=== PATIENT | female | born 1955 ===

== ENCOUNTER 2025-02-23 20:21 | Inpatient (IN) | payer MEDICARE, OTHER ==
[~2025-02-23] VITALS: Ht 165.1 cm; Wt 61.4 kg
[2025-02-23 23:30] VITALS: BP 108/94
[2025-02-23] MEDS ORDERED: ASPI81CH PO (23:43)
[2025-02-23 23:45] VITALS: BP 109/62
[2025-02-23] MEDS ORDERED: Ondansetron HCl 2 MG / ML 2ML Vial IV PRN (23:50)
[2025-02-23] MEDS ORDERED: FLU VACC TS2025(65UP)/MF59C/PF 45 MCG/0.5 ML SYRINGE IM SCH (23:50)
[2025-02-23] MEDS ORDERED: FLUT1DIS5 INH (23:56)
[2025-02-23] MEDS ORDERED: CEPH500 PO (23:56)
[2025-02-23] MEDS ORDERED: GABA100 PO (23:57)
[2025-02-24] VITALS (24 sets, daily range): BP systolic 88–131; BP diastolic 51–80
[2025-02-24] MEDS ORDERED: MULVITA PO (00:19)
[2025-02-24] MEDS ORDERED: LEVE500 PO (00:19)
[2025-02-24] MEDS ORDERED: POTA10T PO (00:20)
[2025-02-24] MEDS ORDERED: PSEU120ER PO (00:20)
[2025-02-24 00:35] LABS: pH Blood Venous 7.19 (7.34-7.37)
[2025-02-24 00:37] LABS: BASOPHILS ABSOLUTE AUTO 0.02 K/mm3 (0.00-0.23); BASOPHILS PERCENT AUTO 0 % (0-2); EOSINOPHILS ABSOLUTE AUTO 0.00 K/mm3 (0.00-0.68); EOSINOPHILS PERCENT AUTO 0 % (0-6); Hematocrit 54.5 % (33.0-51.0); Hemoglobin 17.3 g/dL (11.5-16.0); IMMATURE GRAN ABSOLUTE AUTO 0.05 K/mm3 (0.00-0.10); IMMATURE GRAN PERCENT AUTO 1 % (0-1); LYMPHOCYTES ABSOLUTE AUTO 0.48 K/mm3 (0.84-5.20); LYMPHOCYTES PERCENT AUTO 5 % (21-46); MONOCYTES ABSOLUTE AUTO 0.58 K/mm3 (0.16-1.47); MONOCYTES PERCENT AUTO 6 % (4-13); Mean Corpuscular HGB Conc 31.7 g/dL (31.5-36.5); Mean Corpuscular Volume 104 fL (80-100); NEUTROPHILS ABSOLUTE AUTO 8.57 K/mm3 (1.96-9.15); NEUTROPHILS PERCENT AUTO 88 % (41-73); NRBC ABSOLUTE 0.07 K/mm3 (0.00-0.02); NRBC Auto 0.7 /100 WBC (0.0-0.2); Platelet Count 119 K/mm3 (150-400); RDW Coefficient Variation 20.4 % (11.7-14.2); RDW Standard Deviation 77.0 fL (35.1-46.3)
--- NOTE | 2025-02-24 00:42 | NUR ---
UPDATE RT CALLED WITH CRITICAL LAB: PH [phone]. CALL PLACED TO MD CLINTON. MD CLINTON WITH ORDERS FOR BIPAP AND TO RECHECK VBG AT 0230. RT CURRENTLY IN ROOM SETTING UP AND INITIATING BIPAP.
[2025-02-24 00:51] LABS: Prothrombin Time Results 14.8 Sec (9.7-11.5)
[2025-02-24 01:22] LABS: U Amphetamine Screen Not Detected; U Barbiturate Screen Not Detected; U Benzodiazapine Screen Not Detected; U Buprenorphine Screen Not Detected; U Cannabinoids Screen Not Detected; U Cocaine Screen Not Detected; U Methadone Screen Not Detected; U Methamphetamine Screen Not Detected; U Opiates Screen Not Detected; U Oxycodone Screen Not Detected; U Phencyclidine Screen Not Detected
[2025-02-24 02:08] LABS: Magnesium, Blood 2.3 mg/dL (1.6-2.4)
[2025-02-24 02:13] LABS: Alanine Aminotransfer (ALT/SGP 1002.0 U/L (12-78); Albumin, Blood 3.2 g/dL (3.4-5.0); Albumin/Globulin Ratio 0.9 (0.8-1.8); Anion Gap 9.0 mmol/L (3-11); Aspartate Aminotrans (AST/SGOT 1164.0 U/L (12-37); Bilirubin, Total 0.4 mg/dL (0.1-1.0); Blood Urea Nitrogen 35.0 mg/dL (8-24); CO2, Blood 28.0 mmol/L (21-32); Calcium, Blood 8.4 mg/dL (8.5-10.1); Chloride, Blood 108.0 mmol/L (98-108); Creatinine, Blood 1.51 mg/dL (0.40-1.00); Globulin, Blood 3.7 g/dL (2.2-4.0); Glucose, Blood 88.0 mg/dL (70-99); Potassium, Blood 5.5 mmol/L (3.5-5.5); Sodium, Blood 139.0 mmol/L (136-145); Total Protein, Blood 6.9 g/dL (6.4-8.2)
[2025-02-24 02:57] LABS: pH Blood Venous 7.30 (7.34-7.37)
[2025-02-24 04:10] LABS: pH Blood Venous 7.37 (7.34-7.37)
[2025-02-24] MEDS ORDERED: Albuterol 2.5 MG/3 ML VIAL INH PRN (04:10)
[2025-02-24 04:27] LABS: BASOPHILS ABSOLUTE AUTO 0.02 K/mm3 (0.00-0.23); BASOPHILS PERCENT AUTO 0 % (0-2); EOSINOPHILS ABSOLUTE AUTO 0.00 K/mm3 (0.00-0.68); EOSINOPHILS PERCENT AUTO 0 % (0-6); Hematocrit 50.6 % (33.0-51.0); Hemoglobin 16.2 g/dL (11.5-16.0); IMMATURE GRAN ABSOLUTE AUTO 0.07 K/mm3 (0.00-0.10); IMMATURE GRAN PERCENT AUTO 1 % (0-1); LYMPHOCYTES ABSOLUTE AUTO 0.57 K/mm3 (0.84-5.20); LYMPHOCYTES PERCENT AUTO 6 % (21-46); MONOCYTES ABSOLUTE AUTO 0.53 K/mm3 (0.16-1.47); MONOCYTES PERCENT AUTO 6 % (4-13); Mean Corpuscular HGB Conc 32.0 g/dL (31.5-36.5); Mean Corpuscular Volume 102 fL (80-100); NEUTROPHILS ABSOLUTE AUTO 8.38 K/mm3 (1.96-9.15); NEUTROPHILS PERCENT AUTO 88 % (41-73); NRBC ABSOLUTE 0.09 K/mm3 (0.00-0.02); NRBC Auto 0.9 /100 WBC (0.0-0.2); Platelet Count 114 K/mm3 (150-400); RDW Coefficient Variation 19.9 % (11.7-14.2); RDW Standard Deviation 75.5 fL (35.1-46.3)
[2025-02-24 05:07] LABS: Source, Urine Straight Cath
[2025-02-24 05:30] LABS: Bilirubin, Urine Neg (Neg); Color, Urine Yellow (P-Yellow); Glucose Qualitative, Urine Neg (Neg); Ketones, Urine Neg (Neg); Leukocyte Esterase, Urine Neg (Neg); Protein, Urine 2+ (Neg); Specific Gravity, Urine 1.015 (1.003-1.022); Urobilinogen, Urine NORM (Normal)
[2025-02-24 05:42] LABS: Magnesium, Blood 2.0 mg/dL (1.6-2.4); Thyroid Stimulating Hormone 0.766 uIU/mL (0.360-4.800)
[2025-02-24 05:47] LABS: White Blood Cells, Urine 0-2 /hpf (0-5)
[2025-02-24] MEDS ORDERED: NS 250 ML IV SCH (06:00)
[2025-02-24 06:04] LABS: Alanine Aminotransfer (ALT/SGP 801.0 U/L (12-78); Albumin, Blood 2.6 g/dL (3.4-5.0); Albumin/Globulin Ratio 0.9 (0.8-1.8); Anion Gap 5.0 mmol/L (3-11); Aspartate Aminotrans (AST/SGOT 841.0 U/L (12-37); Bilirubin, Total 0.3 mg/dL (0.1-1.0); Blood Urea Nitrogen 37.0 mg/dL (8-24); CO2, Blood 31.0 mmol/L (21-32); Calcium, Blood 8.0 mg/dL (8.5-10.1); Chloride, Blood 110.0 mmol/L (98-108); Creatinine, Blood 1.32 mg/dL (0.40-1.00); Globulin, Blood 2.9 g/dL (2.2-4.0); Glucose, Blood 86.0 mg/dL (70-99); Potassium, Blood 5.3 mmol/L (3.5-5.5); Sodium, Blood 141.0 mmol/L (136-145); Total Protein, Blood 5.5 g/dL (6.4-8.2)
[2025-02-24] MEDS ORDERED: Enoxaparin 40 MG/0.4 ML SYR SC SCH (09:00)
--- NOTE | 2025-02-24 10:50 | NUR ---
ASSUMPTION OF CARE ASSUMED CARE OF PATIENT AT 0700 AFTER BEDSIDE SHIFT REPORT. PATIENT SLEEPING, AROUSABLE TO NAME, ABLE TO ANSWER SOME BASIC YES/NO QUESTIONS A0 X 2. PATIENT ON BIPAP, SETTINGS PER RT. HR STABLE IN 90'S. SBP 100-110 AND STABLE. O2 SATS >95% ON BIPAP. TANG CATHETER IN PLACE AND DRAINING TO GRAVITY. BILATERAL LOWER EXTREMITY EDEMA NOTED. PROVIDER AWARE. NO OBVIOUS SIGNS OF CHEST PAIN/PRESSURE. BEDREST AT THE MOMENT. PATIENT RESTING COMFORTABLY IN BED IN LOWEST POSITION WITH CALL LIGHT IN REACH.
[2025-02-24] MEDS ORDERED: NS 1,000 ML IV SCH (10:55)
[2025-02-24] MEDS ORDERED: Miconazole Nitrate 2% 85 GM PWD TOP PRN (11:20)
[2025-02-25] VITALS (10 sets, daily range): BP systolic 112–125; BP diastolic 60–87
[2025-02-25 05:09] LABS: Hematocrit 54.7 % (33.0-51.0); Hemoglobin 17.4 g/dL (11.5-16.0); Mean Corpuscular HGB Conc 31.8 g/dL (31.5-36.5); NRBC ABSOLUTE 0.04 K/mm3 (0.00-0.02); NRBC Auto 0.3 /100 WBC (0.0-0.2); RDW Coefficient Variation 20.3 % (11.7-14.2); RDW Standard Deviation 79.7 fL (35.1-46.3)
[2025-02-25 05:10] LABS: Mean Corpuscular Volume 108 fL (80-100); Platelet Count 116 K/mm3 (150-400)
[2025-02-25 05:40] LABS: Albumin, Blood 2.7 g/dL (3.4-5.0); Anion Gap 10 mmol/L (3-11); Blood Urea Nitrogen 30 mg/dL (8-24); CO2, Blood 31 mmol/L (21-32); Calcium, Blood 8.2 mg/dL (8.5-10.1); Chloride, Blood 112 mmol/L (98-108); Creatinine, Blood 0.57 mg/dL (0.40-1.00); Glucose, Blood 76 mg/dL (70-99); Magnesium, Blood 2.6 mg/dL (1.6-2.4); Phosphorus, Blood 2.5 mg/dL (2.5-4.9); Potassium, Blood 5.0 mmol/L (3.5-5.5); Sodium, Blood 148 mmol/L (136-145)
--- NOTE | 2025-02-25 07:59 | NUR ---
SHIFT SUMMARY: PT IS LETHARGIC, A&O TO SELF AND PLACE. VSS ON 2L OXYGEN VIA NC. SR 80'S-90'S. AROUND 2100, PT ADAMANT ABOUT NOT WEARING HER BIPAP. RR 34, DESATTING INTO THE HIGH 80'S. TURNED HER OXYGEN UP TO 4L VIA NC. AROUND 0100, PT APPEARED TO BE STRUGGLING WITH HER BREATHING AND WAS THEN AGREEABLE TO WEAR HER BIPAP, SHE CONTINUED WEARING HER BIPAP THE REST OF THIS SHIFT. PT DOES SEEM TO BE IN PAIN WITH REPOSITIONING, HOLLERS OUT, "OUCH, OUCH, OUCH!" REPOSITIONING Q2 TOLERATED. PT REMAINS NPO. TANG CATHETER PATENT, DRAINING TO GRAVITY, STAT LOCK IN PLACE. VOIDING ADEQUATE AMOUNTS OF YELLOW URINE. NO BM THIS SHIFT. BED IN LOWEST POSITION, CALL LIGHT WITHIN REACH. BED ALARM SET FOR PT'S SAFETY.
[2025-02-25] MEDS ORDERED: Formoterol/Mometasone MDI 5/200 mcg 13 GM INH SCH (15:55)
--- NOTE | 2025-02-25 18:14 | NUR ---
SHIFT SUMMARY PATIENT IS AO X 1-2. VITALS SIGNS WITH IN NORMAL LIMITS. O2 SATS >88% ON 2-4L NC. BIPAP WHILE SLEEPING. MAP >65. HR 80-95. TANG CATHETER IN PLACE DRAINING TO GRAVITY. DIET ORDER CHANGED PER PROVIDER, TOLERATING ORAL NUTRITION WELL. HAS BEEN AT BEDSIDE DURING SHIFT, UPDATED ON PATIENT CONDITION. NYSTATIN APPLIED TO REDENNED AREA ON COCCYX. PATIENT RESTING ON BIPAP IN BED IN LOWEST POSITION, CALL LIGHT WITH IN REACH.
--- NOTE | 2025-02-25 21:28 | NUR ---
ASSUMPTION OF CARE ASSUMED CARE OF PT AT APPROXIMATELY 1900. PT LETHARGIC. VSS. PILLS CRUSHED IN APPLESAUCE. PT REPOSITIONED WITH PILLOW SUPPORT UNDER RIGHT SIDE. BED IN LOWEST POSITION. BIPAP ON WHILE SLEEPING. HEELS ELEVATED WITH PILLOWS. TANG CATHETER IN PLACE DRAINING TO GRAVITY.
[2025-02-26 03:41] VITALS: BP 130/75
[2025-02-26 05:06] LABS: Hematocrit 49.6 % (33.0-51.0); Hemoglobin 15.3 g/dL (11.5-16.0); Mean Corpuscular HGB Conc 30.8 g/dL (31.5-36.5); Mean Corpuscular Volume 107 fL (80-100); NRBC ABSOLUTE 0.00 K/mm3 (0.00-0.02); NRBC Auto 0.0 /100 WBC (0.0-0.2); Platelet Count 96 K/mm3 (150-400); RDW Coefficient Variation 19.6 % (11.7-14.2); RDW Standard Deviation 77.9 fL (35.1-46.3)
--- NOTE | 2025-02-26 05:12 | NUR ---
SHIFT SUMMARY PT CONTINUES TO BE LETHARGIC THIS SHIFT. COMPLIANT WITH BIPAP FOR MOST OF SHIFT. PT TOOK A BREAK FOR A FEW HOURS AND AGREED TO RESUME WITH BIPAP. 3L O2 VIA NC WHEN NOT ON BIPAP. VSS. PT ORIENTED TO SELF. 1:1 FEEDER. PILLS CRUSH WITH APPLESAUCE. PAIN MANAGED WITH MEDICATION PER EMAR. CONTINUE NS AT 50ML/HR. PICTURE OF COCCYX WOUND IN CHART. HEELS FLOATED WITH PILLOWS. PT REPOSITIONED Q2H. TANG IN PLACE AND DRAINING TO GRAVITY. NO C/O CHEST PAIN/PRESSURE THIS SHIFT. NO C/O SOB THIS SHIFT.
[2025-02-26 05:33] LABS: Alanine Aminotransfer (ALT/SGP 515.0 U/L (12-78); Albumin, Blood 2.4 g/dL (3.4-5.0); Albumin/Globulin Ratio 0.9 (0.8-1.8); Anion Gap 4.0 mmol/L (3-11); Aspartate Aminotrans (AST/SGOT 239.0 U/L (12-37); Bilirubin, Total 0.4 mg/dL (0.1-1.0); Blood Urea Nitrogen 19.0 mg/dL (8-24); CO2, Blood 34.0 mmol/L (21-32); Calcium, Blood 8.0 mg/dL (8.5-10.1); Chloride, Blood 114.0 mmol/L (98-108); Creatinine, Blood 0.37 mg/dL (0.40-1.00); Globulin, Blood 2.7 g/dL (2.2-4.0); Glucose, Blood 102.0 mg/dL (70-99); Magnesium, Blood 2.5 mg/dL (1.6-2.4); Potassium, Blood 4.2 mmol/L (3.5-5.5); Sodium, Blood 148.0 mmol/L (136-145); Total Protein, Blood 5.1 g/dL (6.4-8.2)
[2025-02-26 07:51] VITALS: BP 108/58
[2025-02-26] MEDS ORDERED: OXYC5 PO (10:26)
[2025-02-26] MEDS ORDERED: Polyethylene Glycol 3350 17 gm PO PRN (10:50)
[2025-02-26 12:14] LABS: HEPATITIS A ANTIBODY, IGM Negative (Negative); HEPATITIS C AB CIA INTERP Negative (Negative); HEPATITIS C ANTIBODY CIA INDEX <0.02 IV
[2025-02-26 12:32] VITALS: BP 118/63
--- NOTE | 2025-02-26 13:09 | NUR ---
PT UPDATE; THIS RN HAD A DIFFICULT TIME WAKING PT UP FOR LUNCH. PT WOULD RESPOND TO PAIN AND BARELY KEEPING EYES OPEN AND IS FALLING BACK TO SLEEP. VITALS HR 90'S SR, SBP 118, SATS ABOVE 90% ON 3L OF O2, TEMP 99.6. PT WAS TRACY TO EAT BREAKFAST THIS MORNING ABLE TO RESPOND TO SOME QUESTIONS. PT THEN STARTED C/O PAIN ALL OVER PT WAS ASKING FOR PAIN MEDS AND REPORTED THAT SHE WAS TAKING OXYCODONE. PT REPORTED SHE PICKS UP HER PRESCRIPTIONS FROM [facility]. 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 DR GAONA MADE AWARE WAS GIVEN UPDATE REGARDING PT STATUS CHEST XRAY1V ORDERED AND VBG. AWAITING FOR RESULTS AT THIS TIME. PT REMAINED ASLEEP IN BED. WILL CONTINUE TO MONITOR
[2025-02-26 13:30] LABS: pH Blood Venous 7.29 (7.34-7.37)
[2025-02-26 15:19] VITALS: BP 105/65
[2025-02-26 17:20] LABS: pH Blood Venous 7.30 (7.34-7.37)
--- NOTE | 2025-02-26 17:27 | NUR ---
PT SUMMARY; SEE PREVIOUS NOTES; PT WAS ON BIPAP SINCE LUNCH TIME PT STARTED TO WAKE UP AND STARTED PULLING OFF BIPAP MASK, SWITCHED BACK TO NASAL CANNULA. ABLE TO RESPOND TO QUESTIONS AGAIN VERY POOR HISTORIAN. VITALS HAS BEEN STABLE. PT WAS TRANSITION BACK TO PCU STATUS. REPEAT VBG AFTER 3 HRS IN BIPAP DIDNT IMPROVE MUCH. PT WAS PLACED BACK ON BIPAP MASK. TANG DRAINING YELLOW URINE VIA GRAVITY. NS AT 50MLS PER HR. ORDERED ONE TIME DOSE OF IV KEPPRA WHEN PT WAS ON BIPAP. PT RESTING IN BED. COCCYX DRESSINGS CHANGED PT HAS BEEN REPOSITIONED Q2 HRS. ORAL CARE PROVIDED. WILL REPORT TO ONCOMING SHIFT
[2025-02-26 20:11] VITALS: BP 124/77
[2025-02-26] MEDS ORDERED: Docusate Sodium/Senna 1 Tab PO SCH (21:00)
--- NOTE | 2025-02-26 21:43 | NUR ---
ASSUMPTION OF CARE ASSUMED CARE OF PT AT APPROXIMATELY 1900. PT RESTING COMFORTABLY IN BED ON 3L O2 VIA NC. PT SWITCHED TO BIPAP AFTER MEDICATIONS GIVEN PER EMAR. NS RUNNING AT 50ML/HR. PT REPOSITIONED IN BED. NO C/O CHEST PAIN/PRESSURE AT THIS TIME. NO C/O SOB. PT AOX2. CONTINUES TO BE LETHARGIC. VSS. CALL LIGHT WITHIN REACH.
[2025-02-26 23:17] VITALS: BP 120/66
[2025-02-27 03:27] VITALS: BP 119/75
[2025-02-27 04:13] LABS: Hematocrit 50.6 % (33.0-51.0); Hemoglobin 15.7 g/dL (11.5-16.0); Mean Corpuscular HGB Conc 31.0 g/dL (31.5-36.5); Mean Corpuscular Volume 107 fL (80-100); NRBC ABSOLUTE 0.00 K/mm3 (0.00-0.02); NRBC Auto 0.0 /100 WBC (0.0-0.2); Platelet Count 83 K/mm3 (150-400); RDW Coefficient Variation 19.0 % (11.7-14.2); RDW Standard Deviation 76.1 fL (35.1-46.3)
[2025-02-27 04:52] LABS: Albumin, Blood 2.3 g/dL (3.4-5.0); Anion Gap 4 mmol/L (3-11); Blood Urea Nitrogen 16 mg/dL (8-24); CO2, Blood 35 mmol/L (21-32); Calcium, Blood 8.1 mg/dL (8.5-10.1); Chloride, Blood 113 mmol/L (98-108); Creatinine, Blood 0.34 mg/dL (0.40-1.00); Glucose, Blood 129 mg/dL (70-99); Magnesium, Blood 2.3 mg/dL (1.6-2.4); Phosphorus, Blood 1.4 mg/dL (2.5-4.9); Potassium, Blood 3.8 mmol/L (3.5-5.5); Sodium, Blood 148 mmol/L (136-145)
--- NOTE | 2025-02-27 06:12 | NUR ---
SHIFT SUMMARY PT LETHARGIC THIS SHIFT. PT COMPLIANT WITH BIPAP MOST OF THE SHIFT. PT TAKEN OFF BIPAP FOR CARES/REPOSITIONING AT APPROXIMATELY 0500. PT DECLINED HAVING BIPAP PUT BACK ON STATING SHE WANTED TO TAKE A BREAK. PT ON 3L O2 VIA NC. PT HAD MEDIUM BM THIS SHIFT. TANG IN PLACE DRAINING CLEAR YELLOW URINE. REPEAT BLOOD/URINE CULTURES DONE, SEE RESULTS. PT AOX2-3. CBG AT 0000 WAS 78. PT GIVEN APPLE JUICE AND PT REQUESTED AN EXTRA APPLE JUICE AND APPLE SAUCE. PT HAD 18 BEAT RUN OF SVT WHILE REPOSITIONING FOR CARES. NO C/O CP/PRESSURE. NO C/O SOB. PT HAS A VERY COARSE WET COUGH BUT IS UNABLE TO COUGH ANYTHING OUT AT THIS TIME. VSS. CALL LIGHT WITHIN REACH. PT ABLE TO MAKE SOME NEEDS KNOWN.
[2025-02-27 07:28] VITALS: BP 102/70; BP 91/46
[2025-02-27] MEDS ORDERED: Sodium Phosphate Mono/Dibasic 250 MG Tab PO SCH (08:00)
[2025-02-27] MEDS ORDERED: Cholecalciferol 1000 Unit Tablet (=25MCG) PO SCH (09:00)
[2025-02-27] MEDS ORDERED: Multivitamins 1 Tab PO SCH (09:00)
[2025-02-27 10:57] LABS: pH Blood Venous 7.27 (7.34-7.37)
[2025-02-27 11:10] VITALS: BP 127/68
[2025-02-27] MEDS ORDERED: Ipratropium/Albuterol SulF 2.5-0.5MG/3 ML Amp INH SCH (11:25)
--- NOTE | 2025-02-27 12:03 | NUR ---
PT UPDATE AM; PT HAD BREAKFAST THIS MORNING WAS ALERT ADN TALKING STILL A LITTLE BIT DROWSY/LETHARGIC, ABLE TO TAKE MEDS NO ISSUES. VITALS HRR SR 80'S WAS HAVING RUNS OF SVT FOR 9-10 SECONDS MD MADE AWARE PT WAS GIVEN ONE TIME DOSE OF 12.5MG PO METOPROLOL. SBP 110'S, SATS ABOVE 90% ON 4L OF O2, AFEBRILE. BEFORE LUNCH TIME PT WAS VERY LETHRAGIC AGAIN UNABLE TO KEEP EYES OPEN OR STAY AWAKE ABLE TO RESPOND TO QUESTIONS WITH SHORT RESPONSES. PT HAS BEEN REFUSING SINCE THIS MORNING TO BE PLACED BACK ON BIPAP MASK EVEN AFTER EDUCATING. MD MADE AWARE WELL PALLIATIVE CARE RN WAS GIVEN UPDATE. REPEAT VBG WAS DONE PH CAME BACKL CRITICAL AT 7.27. PT WAS PLACED BACK ON THE MASK PT STARTED DESATTING TO 88% ON NASAL CANNULA 4L AND BARELY RESPONDING. PT WAS REPOSITIONED IN BED, TANG CARE AND ORAL CARE DONE. NS RUNNING AT 50MLS/HR WILL CONTINUE TO MONITOR
[2025-02-27 15:28] VITALS: BP 100/62
--- NOTE | 2025-02-27 18:52 | NUR ---
PT SUMMARY; SEE PREVIOUS NOTE; PT REMAINS ON BIPAP TIL THE END OF THE SHIFT. DINNER WAS HELD. VITALS REMAINED STABLE. TANG DRAINING VIA GRAVITY. PT WAS STARTED ON IV STEROIDS AND BREATHING TX. PT REMAINS LETHARGIC ABLE TO RESPOND TO STIMULI ON BIPAP NODS AND OPENS EYES BUT THEN FALLS BACK TO SLEEP. PT HAD 2 LOOSE BM FOR THE SHIFT. PT STARTED ON LACTULOSE. COCCYX DRESSING CHANGED TWICE. REPOSITIONED FOR COMFORT. WILL REPORT TO ONCOMING SHIFT
[2025-02-27 19:32] VITALS: BP 100/67
--- NOTE | 2025-02-27 22:26 | NUR ---
ASSUMPTION OF CARE ASSUMED CARE OF PT AT APPROXIMATELY 1900. PT RESTING IN BED WITH BIPAP IN PLACE. REPOSITIONED PT AND REMOVED BIPAP TO ADMINISTER MEDICATION PER EMAR. PT REFUSING TO REPLACE BIPAP AT THIS TIME DESPITE EDUCATION. PT WITH 3L O2 VIA NC. TEMP SLIGHTLY ELEVATED ACCORDING TO PROBE AT 99.3. TYLENOL NOT GIVEN AT THIS TIME. WILL CONTINUE TO MONITOR.
[2025-02-27 23:18] VITALS: BP 122/79
[2025-02-28 03:59] LABS: Hematocrit 54.0 % (33.0-51.0); Hemoglobin 16.5 g/dL (11.5-16.0); Mean Corpuscular HGB Conc 30.6 g/dL (31.5-36.5); Mean Corpuscular Volume 109 fL (80-100); NRBC ABSOLUTE 0.00 K/mm3 (0.00-0.02); NRBC Auto 0.0 /100 WBC (0.0-0.2); Platelet Count 79 K/mm3 (150-400); RDW Coefficient Variation 18.6 % (11.7-14.2); RDW Standard Deviation 75.4 fL (35.1-46.3)
[2025-02-28 04:00] VITALS: BP 113/69
[2025-02-28 04:28] LABS: Albumin, Blood 2.3 g/dL (3.4-5.0); Anion Gap 5 mmol/L (3-11); Blood Urea Nitrogen 17 mg/dL (8-24); CO2, Blood 34 mmol/L (21-32); Calcium, Blood 7.9 mg/dL (8.5-10.1); Chloride, Blood 112 mmol/L (98-108); Creatinine, Blood 0.41 mg/dL (0.40-1.00); Glucose, Blood 124 mg/dL (70-99); Magnesium, Blood 2.1 mg/dL (1.6-2.4); Phosphorus, Blood 2.4 mg/dL (2.5-4.9); Potassium, Blood 4.5 mmol/L (3.5-5.5); Sodium, Blood 146 mmol/L (136-145)
--- NOTE | 2025-02-28 05:52 | NUR ---
SHIFT SUMMARY PT REFUSED BIPAP ALL SHIFT. PT CONTINUES TO BE LETHARGIC. ORIENTED TO SELF AND PLACE. ASKING WHEN SHE WILL GET TO GO HOME. EDUCATED PT THAT WEARING THE BIPAP WILL HELP GET HER HOME SOONER, BUT SHE CONTINUES TO REFUSE. PT HAD DECREASED URINE OUPUT THIS SHIFT, ONLY 350ML OUT. BLADDER SCAN SHOWS 25ML. NS RUNNING AT 50ML/HR. TANG IN PLACE DRAINING TO GRAVITY. CALL LIGHT WITHIN REACH. PT ABLE TO MAKE SOME NEEDS KNOWN. VSS. 3L O2 VIA NC. TAKES PILLS WHOLE WITH WATER. CBGS CONTINUE TO BE SLIGHTLY ELEVATED D/T MEDICATION. NO C/O CHEST PAIN/PRESSURE AT THIS TIME.
[2025-02-28 07:32] VITALS: BP 111/77
[2025-02-28 08:09] LABS: pH Blood Venous 7.30 (7.34-7.37)
[2025-02-28 12:03] VITALS: BP 127/68
--- NOTE | 2025-02-28 12:25 | NUR ---
"Spiritual Care | Palliative nurse request Pt. is awake and sitting up in bed eating lunch when she welcomes my visit. Spouse is at bedside. Facilitate a family life review. Spouse is the primary communicator. Spouse verbalized that he was an pineapple plantation manager. Establishing rapportis attempted. Other family came to bedside. Spouse and Pt. verbalized gratitude for the spiritual care visit."
[2025-02-28 15:58] VITALS: BP 118/68
--- NOTE | 2025-02-28 17:46 | NUR ---
PT SUMMARY; FAMILY'S PATIENT CAME VISIT THIS SHIFT SISTER TAMAR AND MARIAJOSE BOTH WERE ABLE TO MEET WITH MANAGER INSIDE AND PALLIATIVE CARE TO DISCUSS GOALS OF CARE AND WAS GIVEN UPDATE REGARDING PT'S STATUS. PT HAS BEEN REFUSING BIPAP MACHINE WAS MORE ALERT TODAY ABLE TO PARTICIPATE WITH OCCUPATIONAL THERAPY AROLDO TO SIT IN THE SIDE OF THE BED. PT ALSO WAS ENCOURAGE TO HELP FEED HERSELF ASSISTED. VBG THIS MORNING WAS IMPROVED. PT HAS BEEN EATING AND DRINKING WITH NO ISSUES. TANG AND FLUID WAS DC'D THIS AFTERNOON PT PLACED ON PUREWICK MONITORING FOR URINE OUTPUT. PT CONTINUES ON IV STEROIDS AND BREATHING TREATMENT. MEDICATED ONCE FOR PAIN. PT HAS BEEN RESPOSITIONED Q2 HRS. PLAN TO DC PT TO SNF PER RECOMMENDATION AT THIS TIME. NO OTHER ISSUES ENCOUNTERED FOR [facility] SHIFT. WILL REPORT TO ONCOMING SHIFT
--- NOTE | 2025-02-28 18:34 | NUR ---
PALLIATIVE CARE VISIT: CONSULT RECEIVED. CALLED BY CM TO DISCUSS GOC DUE TO PT REFUSING TO WEAR CPAP WHEN NEEDED. POL FOUND ON POLST REGISTRY WITH CPR/FULL TX. MET WITH PT, SPOUSE AND SISTER IN THE ROOM. PT IS AWAKE AND ABLE TO ANSWER QUESTIONS APPROPRIATELY. WE DISCUSS MEDICAL CONCERNS AND CODE STATUS. CODE STATUS: PT WISHES TO REMAIN A FULL CODE AFTER DISCUSSING RISKS VS BENEFITS OF CPR/DNR MEASURES. GOC: PT STATES SHE REFUSES TO WEAR THE MASK DUE TO CHILDHOOD TRAUMA FROM HER STEPDAD STRANGULATING HER. IT CAUSES HER TO THINK ABOUT THOSE MEMORIES. PROVIDED EDUCATION ON IMPORTANCE OF USE AND WHY SHE NEEDS TO WEAR MASK AND ASKED HER IF IT WAS OKAY TO SHARE HER FEAR WITH STAFF SO THEY CAN HELP HER REGULATE HER EMOTIONS AND SHE AGREED. DISCUSSED COPING STRATEGIES. PROVIDED EMPATHETIC LISTENING AND EMOTIONAL SUPPORT. WE DISCUSSED OTHER OPTIONS OF CARE THAT ARE AVAILABLE SUCH HOME WITH HOSPICE IF SHE DID NOT WANT TO HAVE TO WEAR CPAP OR PURSUE OUTPATIENT. PT AND FAMILY WANTED TIME TO CONSIDER. PT ADVISED TO CALL FOR ANY FURTHER QUESTIONS OR NEEDS. UPDATED CM AND PRIMARY RN.
[2025-02-28 19:08] VITALS: BP 122/74
[2025-02-28 23:17] VITALS: BP 109/62
[2025-03-01 03:11] VITALS: BP 124/80
[2025-03-01 03:54] LABS: pH Blood Venous 7.39 (7.34-7.37)
[2025-03-01 04:28] LABS: Hematocrit 51.6 % (33.0-51.0); Hemoglobin 15.8 g/dL (11.5-16.0); Mean Corpuscular HGB Conc 30.6 g/dL (31.5-36.5); Mean Corpuscular Volume 106 fL (80-100); NRBC ABSOLUTE 0.00 K/mm3 (0.00-0.02); NRBC Auto 0.0 /100 WBC (0.0-0.2); Platelet Count 95 K/mm3 (150-400); RDW Coefficient Variation 17.8 % (11.7-14.2); RDW Standard Deviation 71.0 fL (35.1-46.3)
[2025-03-01 05:59] LABS: Alanine Aminotransfer (ALT/SGP 214.0 U/L (12-78); Albumin, Blood 2.3 g/dL (3.4-5.0); Albumin/Globulin Ratio 0.7 (0.8-1.8); Anion Gap 4.0 mmol/L (3-11); Aspartate Aminotrans (AST/SGOT 30.0 U/L (12-37); Bilirubin, Total 0.4 mg/dL (0.1-1.0); Blood Urea Nitrogen 18.0 mg/dL (8-24); CO2, Blood 35.0 mmol/L (21-32); Calcium, Blood 8.4 mg/dL (8.5-10.1); Chloride, Blood 106.0 mmol/L (98-108); Creatinine, Blood 0.39 mg/dL (0.40-1.00); Globulin, Blood 3.2 g/dL (2.2-4.0); Glucose, Blood 122.0 mg/dL (70-99); Magnesium, Blood 2.3 mg/dL (1.6-2.4); Potassium, Blood 4.4 mmol/L (3.5-5.5); Sodium, Blood 141.0 mmol/L (136-145); Total Protein, Blood 5.5 g/dL (6.4-8.2)
--- NOTE | 2025-03-01 06:14 | NUR ---
SHIFT SUMMARY PT SLEEPY BUT EASILY AROUSABLE. ORIENTED TO SELF, AND PLACE, CONFUSED AT TIMES. PT WAS ABLE TO TOLERATE BIPAP FOR APPROX 4 HOURS T/O SHIFT. MENTATION IMPROVED THIS AM AND PT MORE ALERT AND NOT DROWSY. SpO2 >92% ON 4L VIA NC. SHE DENIES ANY SOB AT THIS TIME. PT RECIEVING PRN BREATHING TREATMENTS. PT HAD TANG REMOVED YESTERDAY. PT DID NOT HAVE ANY URINE OUTPUT, BLADDER SCAN COMPLETED, 250MLS PRESENT. PT STILL DID NOT HAVE ANY URINE OUTPUT THIS AM, BLADDER SCANNED AGIAN WHICH SHOWED 601ML'S. STRAIGHT CATH PERFORMED WITH 650MLS OUT. PUREWICK REPLACED, WILL MONITOR URINE OUTPUT. PT DID NOT HAVE A BM THIS SHIFT, PRIOR SHIFT MULTIPLE LARGE LOOSE STOOLS. PT RESTING IN BED AT THIS TIME. CALL LIGHT IN REACH. WILL MONITOR PT AND REPORT TO ONCOMING RN.
[2025-03-01 08:16] VITALS: BP 130/83
--- NOTE | 2025-03-01 09:59 | NUR ---
ASSUMPTION OF CARE ASSUMED CARE OF PATIENT AT APPROXIMATELY 0700. PT RESTING IN BED, ALERT AND ORIENTED X4, UNSURE OF EVENTS LEADING UP TO HOSPITILIZATION. PT ANSWERS QUESTIONS APPROPRIATELY, FOLLOWS DIRECTION WHEN PROMPTED AND IS ABLE TO MAKE HER NEEDS KNOWN. PT MOVES EXTREMITIES EQUALLY BILATERALLY. HR 80'S SINUS, MAP >65. PT ALTERNATING BETWEEN 4LPM VIA NC AND BIPAP, OXYGEN SATURATION >92%. ABDOMEN SOFT, BOWEL TONES ACTIVE THROUGHOUT. PUREWICK IN PLACE. PIV IN PLACE TO RFA AND LAC SL. BED IN LOWEST POSITION, CALL LIGHT WITHIN REACH, CARE CONTINUES.
[2025-03-01 11:49] VITALS: BP 163/89
[2025-03-01 16:48] VITALS: BP 129/79
--- NOTE | 2025-03-01 17:39 | NUR ---
SHIFT SUMMARY NO ACUTE CHANGES THIS SHIFT. PT CONTINUES TO REST IN BED, SLEEPING BUT AROUSABLE, PT ORIENTED X4, ANSWERS QUESTIONS APPROPRIATELY, FOLLOWS DIRECTION WHEN PROMPTED AND IS ABLE TO MAKE HER NEEDS KNOWN. PT MOVES EXTREMITIES EQUALLY BILATERALLY. HR 80-90'S SINUS, MAP >65. PT ALTERNATING BETWEEN 4LPM VIA NC AND BIPAP, OXYGEN SATURATION >92%. ABDOMEN SOFT, BOWEL TONES ACTIVE THROUGHOUT. PUREWICK AND ATTENDS IN PLACE WITH NO OUTPUT, BLADDER SCAN PERFORMED THIS SHIFT SHOWING 292MLS. PIV IN PLACE TO LAC AND RFA SL. BED IN LOWEST POSITION, CALL LIGHT WITHIN REACH, CARE CONTINUES.
[2025-03-01 19:21] VITALS: BP 149/90
[2025-03-01 23:45] VITALS: BP 139/79
[2025-03-02 03:16] VITALS: BP 152/90
[2025-03-02 04:39] LABS: pH Blood Venous 7.45 (7.34-7.37)
[2025-03-02 04:42] LABS: BASOPHILS ABSOLUTE AUTO 0.01 K/mm3 (0.00-0.23); BASOPHILS PERCENT AUTO 0 % (0-2); EOSINOPHILS ABSOLUTE AUTO 0.02 K/mm3 (0.00-0.68); EOSINOPHILS PERCENT AUTO 0 % (0-6); Hematocrit 52.0 % (33.0-51.0); Hemoglobin 16.5 g/dL (11.5-16.0); IMMATURE GRAN ABSOLUTE AUTO 0.07 K/mm3 (0.00-0.10); IMMATURE GRAN PERCENT AUTO 1 % (0-1); LYMPHOCYTES ABSOLUTE AUTO 0.60 K/mm3 (0.84-5.20); LYMPHOCYTES PERCENT AUTO 4 % (21-46); MONOCYTES ABSOLUTE AUTO 1.30 K/mm3 (0.16-1.47); MONOCYTES PERCENT AUTO 9 % (4-13); Mean Corpuscular HGB Conc 31.7 g/dL (31.5-36.5); Mean Corpuscular Volume 104 fL (80-100); NEUTROPHILS ABSOLUTE AUTO 11.92 K/mm3 (1.96-9.15); NEUTROPHILS PERCENT AUTO 86 % (41-73); NRBC ABSOLUTE 0.02 K/mm3 (0.00-0.02); NRBC Auto 0.1 /100 WBC (0.0-0.2); Platelet Count 109 K/mm3 (150-400); RDW Coefficient Variation 18.0 % (11.7-14.2); RDW Standard Deviation 69.5 fL (35.1-46.3)
[2025-03-02 05:05] LABS: Anion Gap 4.0 mmol/L (3-11); Blood Urea Nitrogen 14.0 mg/dL (8-24); CO2, Blood 37.0 mmol/L (21-32); Calcium, Blood 8.6 mg/dL (8.5-10.1); Chloride, Blood 103.0 mmol/L (98-108); Creatinine, Blood 0.36 mg/dL (0.40-1.00); Glucose, Blood 98.0 mg/dL (70-99); Potassium, Blood 4.0 mmol/L (3.5-5.5); Sodium, Blood 140.0 mmol/L (136-145)
--- NOTE | 2025-03-02 06:30 | NUR ---
SHIFT SUMMARY PT A&O X4, CONFUSED AT TIMES. SHE IS ABLE TO EXPRESS HER NEEDS. HR IN THE 80'S , SR, SHE DENIES ANY CP/PRESSURE, NUMB/TINGLING, SBP STABLE. PT ON 4-6L VIA NC. PT ON BIPAP INTERMITTENTLY FOR 30-45 MINUTE INQUIRMENTS THEN SHE WILL TAKE IT OFF. PT WILL REMOVE BIPAP WITHOUT CALLING AND THEN SHE WILL DESAT TO THE 70'S-80'S, WITH SLOW RECOVERY. PT HAS PUREWICK IN PLACE. SHE IS ABLE TO GET UP TO BSC WITH HEAVY 2 PERSON ASSIST, PT HAD BM AND URINATED ON BSC T/O NIGHT. PT/OT TO WORK WITH PT. PT RESTING IN BED AT THIS TIME. CALL LIGHT IN REACH. WILL MONITOR PT AND REPORT TO ONCOMING RN.
[2025-03-02 07:39] VITALS: BP 155/93
[2025-03-02 10:42] LABS: Prothrombin Time Results 12.3 Sec (9.7-11.5)
[2025-03-02 12:22] VITALS: BP 143/78
[2025-03-02 17:28] VITALS: BP 141/89
[2025-03-02 19:36] VITALS: BP 146/81
[2025-03-03] VITALS (7 sets, daily range): BP systolic 120–150; BP diastolic 72–84
[2025-03-03 03:30] LABS: pH Blood Venous 7.59 (7.34-7.37)
[2025-03-03 03:57] LABS: BASOPHILS ABSOLUTE AUTO 0.02 K/mm3 (0.00-0.23); BASOPHILS PERCENT AUTO 0 % (0-2); EOSINOPHILS ABSOLUTE AUTO 0.04 K/mm3 (0.00-0.68); EOSINOPHILS PERCENT AUTO 0 % (0-6); Hematocrit 51.5 % (33.0-51.0); Hemoglobin 16.4 g/dL (11.5-16.0); IMMATURE GRAN ABSOLUTE AUTO 0.11 K/mm3 (0.00-0.10); IMMATURE GRAN PERCENT AUTO 1 % (0-1); LYMPHOCYTES ABSOLUTE AUTO 0.60 K/mm3 (0.84-5.20); LYMPHOCYTES PERCENT AUTO 5 % (21-46); MONOCYTES ABSOLUTE AUTO 1.49 K/mm3 (0.16-1.47); MONOCYTES PERCENT AUTO 12 % (4-13); Mean Corpuscular HGB Conc 31.8 g/dL (31.5-36.5); Mean Corpuscular Volume 103 fL (80-100); NEUTROPHILS ABSOLUTE AUTO 10.36 K/mm3 (1.96-9.15); NEUTROPHILS PERCENT AUTO 82 % (41-73); NRBC ABSOLUTE 0.00 K/mm3 (0.00-0.02); NRBC Auto 0.0 /100 WBC (0.0-0.2); Platelet Count 122 K/mm3 (150-400); RDW Coefficient Variation 17.8 % (11.7-14.2); RDW Standard Deviation 67.8 fL (35.1-46.3)
[2025-03-03 04:21] LABS: Alanine Aminotransfer (ALT/SGP 134.0 U/L (12-78); Albumin, Blood 2.3 g/dL (3.4-5.0); Albumin/Globulin Ratio 0.7 (0.8-1.8); Anion Gap 1.0 mmol/L (3-11); Aspartate Aminotrans (AST/SGOT 34.0 U/L (12-37); Bilirubin, Total 0.7 mg/dL (0.1-1.0); Blood Urea Nitrogen 11.0 mg/dL (8-24); CO2, Blood 42.0 mmol/L (21-32); Calcium, Blood 8.3 mg/dL (8.5-10.1); Chloride, Blood 101.0 mmol/L (98-108); Creatinine, Blood 0.34 mg/dL (0.40-1.00); Globulin, Blood 3.2 g/dL (2.2-4.0); Glucose, Blood 85.0 mg/dL (70-99); Potassium, Blood 4.3 mmol/L (3.5-5.5); Sodium, Blood 140.0 mmol/L (136-145); Total Protein, Blood 5.5 g/dL (6.4-8.2)
--- NOTE | 2025-03-03 05:58 | NUR ---
NOC SHIFT SUMMARY PT A&O X3-4, CONFUSED ON DATE AND DAY OF THE WEEK. PT CAN BE SLOW TO RESPOND AT TIMES. PT IS ABLE TO BE REORIENTATED. SHE DENIES CHEST PAIN OR PRESSURE. PT ON 6L NC ALL SHIFT. PT DID DESAT TO 85% W/ REPOSTIONING AND HAVE TO BE TURNED UP TO 8L NC TO RECOVER. Q2 REPOSTIONIG GIVEN/OFFERED. PT HOWEVER REFUSING TO LAY ON L SIDE. SHE DID DENY ONE REPOSTION, EDUCATED ON PURPOSE OF Q2'S. PT LIEN CHANGED DURING THE NIGHT AFTER SHE VOIDED IN HER BRIEF, MEPELIX, BRIEF AND PURWICK CHANGED. PT REFUSED TO WEAR BIPAP AT ALL DURING THE NIGHT. PT TRANSFERS W/ HEAVY TWO PERSON TO BSC FOR BM OR VOIDING. WORKING W/ PT/OT. BED IN LOW, BED ALARM ON FOR SAFETY. CALL LIGHT IN REACH. WILL REPORT TO ONCOMING RN.
--- NOTE | 2025-03-03 16:26 | NUR ---
PT IS GOING TO TRANSITION TO COMFORT CARE IN THE MORNING. DR. VILLEDA IS AWARE, AND APPROVES. PT'S BROTHER IS TRAVELING FROM [facility] TO SEE HER AND SPEND TIME WITH HER. PT'S AND SISTER WERE PRESENT FOR THE DISCUSSION AND ARE IN AGREEMENT.
--- NOTE | 2025-03-03 18:22 | NUR ---
THIS RN ASSUMED CARE AT 1700. REPORT FROM ALYSSA CARABALLO. PATIENT SLEEPING UPON CARE ASSUMPTION AND WAKES EASILY TO VOICE. ALERT AND ORIENTED. ABLE TO COMMUNICATE NEEDS AND WHY SHE IS HERE. MOVING ALL EXTREMITIES. HELPING WITH TURNS IN BED. COMPLAINS OF PAIN IN BACK AND BOTH LEGS 12/15. MEDICATED PER EMAR WITH SOME RELIEF. TELE SHOWING SR WITH HR 70'S. DENIES CHEST PAIN/PRESSURE/PALPITATIONS. SBP 120'S. NO EDEMA NOTED. PPP. ON 7L HIGH FLOW NASAL CANNULA SATING LOW 90'S. OCCASIONAL MOIST SOUNDING COUGH. BOWEL TONES PRESENT. PATIENT ATE FULL PUREE DINNER. DENIES ABDOMINAL PAIN/NAUSEA. SUCTION AT BEDSIDE. PUREWICK IN PLACE. COCCYX WOUND CLEANSED AND DRESSING CHANGED PER WOUND ORDERS. ATTENDS IN PLACE. BED ALARM ON. PATIENT DENIES NEEDS AT THIS TIME. CALL LIGHT IN REACH.
--- NOTE | 2025-03-03 19:43 | NUR ---
ASSUMPTION OF CARE ASSUMED PT'S CARE AT 1900,PT SLEEPING,OPENS EYES TO VERBAL COMMAND.BEDSIDE REPORT COMPLETED,PLAN OF CARE REVIEWED.PT DENIES PAIN,DENIES SOB,DENIES NEEDS.PT ON 5L OXYGEN VIA NC.OXYGEN SATURATION 95%.CALL LIGHT AND PT'S ITEMS WITHIN REACH.MONITORING ONGOING PER CAREPLAN.
[2025-03-04 04:20] VITALS: BP 126/71
--- NOTE | 2025-03-04 06:33 | NUR ---
PT MONITORED DURING THE SHIFT.PT AWAKE MOST OF THE NIGHT.PRN PAIN MEDICINE GIVEN PER PT'S REQUEST.PT'S SISTER AND BROTHER ARRIVED TO THE ROOM AT 0400.PT MAINTAINED OXYGEN SATURATION >95% ON 5L VIA HFNC BUT REQUIRED 7L DURING CARES.PT LYING IN BED WITH HOB ELEVATED.PT REQUESTING 5MG OF LORAZEPAM.PT STATES THAT SHE WAS ON 5MG A WHILE AGO FOR ANXIETY.RESIDENT GIVEN A CALL THIS MORNING BUT NO ANSWER.PT DENIES PAIN,DENIES SOB AT THIS TIME.CALL LIGHT AND PT'S ITEMS WITHIN REACH.MONITORING ONGOING PER CAREPLAN.
[2025-03-04 08:48] VITALS: BP 100/57
[2025-03-04] MEDS ORDERED: Morphine Sulfate 10 MG/ML 1MLSYR IV PRN (09:40)
[2025-03-04] MEDS ORDERED: Atropine Sulfate 1% Opth Soln 2ML BTL SL PRN (09:40)
[2025-03-04] MEDS ORDERED: Morphine Sulfate 20 MG/1ML 1 ML Oral Syringe SL PRN (09:40)
--- NOTE | 2025-03-04 10:35 | NUR ---
Spiritual Care - Family request Pt. is awake and welcomes my visit. SPouse is at bedside, as are many family members. Pt. initiated her primary request about the spiritual nature fogoing on comfort care. Listened with empathy and respect. Considered many matters of emilia and belief. During the visit Dr. Godwin came to bedside. Pt. displayed evidenceo of being clear thinking and aware of her choices with her family at bedside. Prayed with the Pt. Pt. verbalized gratitude for the spiritual care visit.
--- NOTE | 2025-03-04 10:42 | NUR ---
ASSUMPTION OF CARE ASSUMED CARE OF PATIENT AT 0700 AFTER BEDSIDE SHIFT REPORT. AWAKE ALERT AND ORIENTED X 4. VITALS SIGNS STABLE, MAP >65. HR 80-90 IN SR. 02 SATS >92% ON 5-8L O2 HFNC. SATS DECREASE TO 80-90% WITH EXERTION, INCREASES TO 90-95% WITH REST. PATIENT DENIES CHEST PAIN/PRESSURE AT THIS TIME. PURE WICK IN PLACE DRAINING TO SUCTION. PATIENT'S FAMILY BEDSIDE, DISCUSSED COMFORT CARE ORDERS. COMFORT CARE ORDER PLACED. PATIENT RESTING COMFORTABLY IN BED IN LOWEST POSITION, CALL LIGHT WITH IN REACH.
--- NOTE | 2025-03-04 16:23 | NUR ---
PATIENT IS SURROUNDED BY FAMILY MEMBERS. SHE STATES SHE IS FEELING "A BIT OF ANXIETY, AND REQUESTS A INSURANCE POLICY ISSUE CLERK. SHE STATES SHE WANTS TO BE SURE SHE WILL GO TO [facility], AND WANTS TO PRAY WITH THEM, FAMILY IS SUPPORTIVE, AND THIS PC RN PROVIDED THERAPEUTIC TOUCH, HOLDING HER HAND PRIOR TO CALLING INSURANCE POLICY ISSUE CLERK. PC TO REMAIN AVAILABLE NEEDED. ORDERS PLACED PER DR VILLEDA. COMFORT CART ORDERED. PATIENT WILL BE TRANSFERRED TO THE MEDICAL FLOOR.
--- NOTE | 2025-03-04 17:45 | NUR ---
SHIFT SUMMARY: MULTIPLE FAMILY MEMBERS AND PALLIATIVE CARE MEET AT BEDSIDE THIS AM. PT TRANSITIONED TO COMFORT CARE AFTER THE MEETING. PT RESTING PEACEFULLY THIS SHIFT, WAKES EASILY TO STAFF IN ROOM, ANSWERS QUESTIONS APPROPRIATELY, Ox4. Q2H REPOSITIONING MAINTAINED, BUT PT DECLINES TO TURN ONTO HER L SIDE. RESPIRATIONS UNLABORED AT REST, SLIGHTLY LABORED WHEN ASSISTING WITH TURNS, O2 SATS >92%, CURRENTLY ON 5 L/MIN HHNC. PUREE DIET TOLERATED WELL THIS SHIFT. PUREWICK PATENT, DRAINING YELLOW COLORED URINE TO LCS. PT MEDICATED x1 FOR C/O ANXIETY AND x1 FOR C/O GENERALIZED PAIN. FAMILY CONTINUES AT BEDSIDE, WILL CONTINUE TO MONITOR AND TREAT ACCORDINGLY.
[2025-03-04] MEDS ORDERED: Ipratropium/Albuterol SulF 2.5-0.5MG/3 ML Amp INH PRN (18:15)
--- NOTE | 2025-03-05 06:44 | NUR ---
SHIFT SUMMARY PATIENT A/OX4. PLEASANT AND COOPERATIVE. ON COMFORT CARE. PRN MEDICATION PROVIDED. Q2HR TURN OFFERED. PATIENT REQUESTED TO NOT BE WOKEN UP EVERY 2 HOURS TO TURN. JULIUS PO INTAKE AND TAKING MEDS WITH ANY FLUID. STAYED WITH HER OVERNIGHT. CURRENTLY MEDICAL STATUS. PLAN OF CARE ONGOING.
--- NOTE | 2025-03-05 09:21 | NUR ---
ASSUMPTION OF CARE ASSUMED CARE OF PATIENT AT 0700 AFTER BEDSIDE SHIFT REPORT. PATIENT AWAKE, DROWSY AO X4. COMFORT CARE OF 03/04/2025. PURE WICK IN PLACE DRAINING TO SUCTION. PATIENT'S BREATHING UNLABORED ON 3L NC. PLAN TO TRANSFER TO MEDICAL FLOOR. DENIES CHEST PAIN PRESSURE. PATIENT RESTING COMFORTABLY IN BED IN LOWEST POSITION, CALL LIGHT IS WITH IN REACH. FAMILY IS BEDSIDE.
--- NOTE | 2025-03-05 11:54 | NUR ---
"Spiritual Care Visit | Comfort Care. Pt. is on comfort care and is resting and mostly not responsive. Facilitated an update from the Pts. spouse and sister. Another family member is present but not engaged with the visit. After asking the spouse of the Pts. favorite color, a comfort care quilt is obtained and placed over the Pt. Prayed over the Pt. Spouse and Pts. sister verbalized gratitude for the quilt and the visit. Will remain available to Pt., family , and staff."
[2025-03-05] MEDS ORDERED: HYDROmorphone HCl/Pf 1MG SYR IV PRN (14:25)
--- NOTE | 2025-03-05 15:07 | NUR ---
Patient appears to be resting comfortably at this time. is at bedside, states he is so appreciative of the kindness of hospital staff. He is tearful, reminiscing about his and the patient's relationship. Current medications are effective for symptom management.
--- NOTE | 2025-03-05 18:21 | NUR ---
PT WAS TRANSFERRED FROM PCU TODAY. SHE'S REMAINED ASLEEP BUT IS RESPONSIVE TO VERBAL STIMULI AND ABLE TO VERBALIZE PAIN ON ASSESSMENT. PT HAS DILAUDID ORDERED FOR PAIN AND AIR HUNGER SHE IS ALLERGIC TO MORPHINE, PALLIATIVE CARE IS RECOMMENDING TO STAY ON TOP OF THIS MEDICATION DUE TO HER RESPIRATORY STATUS. PT IS CURRENTLY RESTING IN BED, CHEST RISING AND FALLING SYMMETRICALLY WITH NO SIGNS OF AIR HUNGER. FAMILY HAS REMAINED AT THE BEDSIDE. NO ACUTE NEEDS AT THIS TIME.
[2025-03-06] MEDS ORDERED: HYDROmorphone HCl/Pf 1MG SYR IV PRN (02:00)
--- NOTE | 2025-03-06 07:18 | NUR ---
Shortly after the of the patient, I visited with the family (Spouse, sister and brother are present). They grieve appropriately as I conduct a life review. The family is pleasant and warm even in their distress. I provided therapeutic listening, grief support and prayer. The family responded well and showed signs of being comforted.
--- NOTE | 2025-03-06 07:31 | NUR ---
SHIFT SUMMARY AT START OF SHIFT, PT LYING ON RIGHT SIDE. IN ROOM. PT AGREEABLE TO BEING REPOSITIONED. MOUTH MOISTENED. PT COMFORTABLE AT THIS TIME. R. MID-LOWER LUNG SOUNDS SEVERELY DIMINISHED. L. LUNG SOUNDS CLEAR THROUGHOUT. ROUNDED ON PT FOR REPOSITIONING. PT EXPERIENCING AIR HUNGER, BUT NOT DUE FOR MORE DILAUDED UNTIL 0342. PT HAS SEVERE REACTION TO MORPHINE. CALLING HOSPITALIST. HOSPITALIST CHANGED DILAUDED ORDER FROM 1-2MG Q4PRN TO 1MG Q2PRN. 0208, IV DILAUDED AND PO ATROPINE ADMINISTERED. PT BREATHING EXTREMELY TACHYPNEIC AND LABORED. EDUCATED FAMILY ON PROCESS. WILL CONTINUE TO MONITOR CLOSELY. MEDICATED AGAIN FOR AIR HUNGER AND SECRETIONS APPROX 0432. PERFORMED CATH CARE. PT PASSED PEACEFULLY IN HER SLEEP WITH FAMILY BY HER SIDE AT 0610.
--- NOTE | 2025-03-06 12:28 | NUR ---
DISCHARGE NOTE- MORTUARY PICKED UP THE PT NAME OF THE PICKUP PERSON IS GIOVANNA FROM [facility]
== END 2025-03-06 06:10 | DRG 189 ==
LOC: PCU 20:21 → MEDS 03-05 09:38 → ENPENDDIS 03-06 06:10 → MEDS 03-06 06:10
PROVIDERS: Internal Medicine; Student in an Organized Health Care Education/Training Program; ADMIT Student in an Organized Health Care Education/Training Program
PROC: 5A09357 Assistance with Respiratory Ventilation, Less than 24 Consecutive Hours, Continuous Positive Airway Pressure (ICD-10-PCS; principal; 2025-02-24)
PROC: 5A0935A Assistance with Respiratory Ventilation, Less than 24 Consecutive Hours, High Flow/Velocity Cannula (ICD-10-PCS; 2025-03-03)
DX: J96.22 Acute and chronic respiratory failure with hypercapnia (principal); E43 Unspecified severe protein-calorie malnutrition; G92.8 Other toxic encephalopathy; R57.1 Hypovolemic shock; N17.9 Acute kidney failure, unspecified; E72.20 Disorder of urea cycle metabolism, unspecified; E87.3 Alkalosis; Z51.5 Encounter for palliative care; E86.1 Hypovolemia; J96.21 Acute and chronic respiratory failure with hypoxia; J44.9 Chronic obstructive pulmonary disease, unspecified; E05.90 Thyrotoxicosis, unspecified without thyrotoxic crisis or storm; I71.40 Abdominal aortic aneurysm, without rupture, unspecified; Z96.642 Presence of left artificial hip joint; L89.151 Pressure ulcer of sacral region, stage 1; G40.909 Epilepsy, unspecified, not intractable, without status epilepticus; E86.0 Dehydration; R74.8 Abnormal levels of other serum enzymes; R93.41 Abnormal radiologic findings on diagnostic imaging of renal pelvis, ureter, or bladder; E88.A Wasting disease (syndrome) due to underlying condition; Z68.22 Body mass index [BMI] 22.0-22.9, adult; K76.82 Hepatic encephalopathy; F10.20 Alcohol dependence, uncomplicated; R19.7 Diarrhea, unspecified; K74.60 Unspecified cirrhosis of liver; R40.0 Somnolence; T42.75XA Adverse effect of unspecified antiepileptic and sedative-hypnotic drugs, initial encounter; G31.84 Mild cognitive impairment of uncertain or unknown etiology; F17.200 Nicotine dependence, unspecified, uncomplicated; R74.02 Elevation of levels of lactic acid dehydrogenase [LDH]; D72.829 Elevated white blood cell count, unspecified; T38.0X5A Adverse effect of glucocorticoids and synthetic analogues, initial encounter; D69.6 Thrombocytopenia, unspecified; Z88.8 Allergy status to other drugs, medicaments and biological substances; Z98.51 Tubal ligation status; Z90.49 Acquired absence of other specified parts of digestive tract; Z79.82 Long term (current) use of aspirin; Z79.899 Other long term (current) drug therapy; Z79.2 Long term (current) use of antibiotics; Z91.198 Patient's noncompliance with other medical treatment and regimen for other reason; Z79.51 Long term (current) use of inhaled steroids
CPT/HCPCS: 36415; 71045; 76705; 76775; 80048; 80053; 80069; 80074; 81001; 82140; 82550; 82570; 82607; 82746; 82803; 82947; 83735; 83880; 84300; 84439; 84443; 85025; 85027; 85610; 87040; 93306; 94640; 94660; 94664; 94762; 97162; 97166; 97530; 97535; A9270; J1171; J1650; J1953; J2919; J7030; J7512